=== PATIENT | female | born 1980 | race African-American/Black ===

== ENCOUNTER 2019-05-08 15:56 | Emergency (ER) | payer MEDICARE, SELFPAY ==
[2019-05-08 15:57] VITALS: BP 148/98; PULSE 81; RESP 19; TEMP 36.7; O2SAT 99; BMI 28.6
--- NOTE | 2019-05-08 16:26 | ED.VISSUMM ---
- ER Visit Summary Date of Service: 05/08/19 Chief Complaint: Right upper back pain History of Present Illness: The patient is a 39 F states last evening had pain in the right upper back and constant on the day. Worse with movement. She denies any shortness of breath. No hemoptysis. No chest pain or abdominal pain. She denies any falls or trauma. She has had trigger point injections in her back before in the past. But has no spine surgery history. Or history of degenerative disc. She denies any weakness or numbness. No fever. Physical Examination: Well-appearing female vital signs are stable. She is afebrile. Pulse ox 90% room air no signs of hypoxia. H EENT exam unremarkable. Neck nontender no lymphadenopathy. Full range of motion. Lungs clear to auscultation bilaterally. Heart regular rhythm no murmur rate about 80. Abdomen soft nontender normal bowel sounds no peritoneal signs. Please moves all 4. Neurovascular intact. 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 Dorsi plantarflexion intact. No cauda equina or saddle anesthesia. No weakness or numbness. Back cervical, thoracic and lumbar spine nontender her right trapezius muscle and parathoracic musculature are tender to palpation consistent with muscle spasm. There is no ecchymosis or bruising. No signs of trauma. No redness or Test Results: None Emergency Department Course and Treatment: Patient will be treated for muscle spasm. IM Toradol and p.o. Valium. Taking a cab home. Treatment Plan: Ibuprofen 603 times a day. Hot shower, warm bath size to relax the muscles. Valium 5 mg 3 times daily up to 5 days. Disposition: Discharge Impression: Right upper back pain secondary to muscle spasm This note was generated with [employer] dictation software. It may contain incorrect words, spelling, and punctuation that were not noted in review of the chart prior to signing ED Disposition - Plan for ED Patient: Referrals: NOT,DEFINED [Primary Care Provider] -
--- NOTE | 2019-05-08 16:28 | ED.DEP ---
ED Disposition - Plan for ED Patient: Disposition: Home or Assisted Living Instructions: BACK SPASM, No Trauma Prescriptions: Diazepam [Valium] 10 mg PO Q8H PRN PRN 7 Days #14 tab PRN Reason: Muscle Spasm Prescription Printed Referrals: Sumeet Brown MD [STAFF PHYSICIAN] - 3-5 Days if not improving Additional Instructions: Hot shower and warm bath to relax the muscles. Massage. Valium for the muscle relaxant. Motrin for inflammation and pain. 600 mg 3 times a day.
[2019-05-08] MEDS: Ketorolac 60 MG/2 ML Vial IM (16:33)
[2019-05-08] MEDS: diazePAM 5 MG Tablet 10 MG PO (16:36)
[2019-05-08 17:00] VITALS: RESP 16
--- NOTE | 2019-05-08 17:00 | ED.RN ---
REVIEWED D/C INSTRUCTIONS, FOLLOW UP CARE, PRESCRIPTION, AND S/S THAT WOULD WARRANT A RETURN TO THE ED WITH PT. PT VERBALIZED AN UNDERSTANDING AND DENIES FURTHER QUESTIONS FOR THIS RN. PT SKIN WARM/DRY, RESP EVEN AND UNLABORED, PT A&O X 3, NO DISTRESS NOTED. PT AMBULATED OUT OF ED, GAIT STEADY.
== END 2019-05-08 17:18 | disposition home or self-care (01) ==
PROVIDERS: Emergency Provider Emergency Medicine
DX: M54.6 Pain in thoracic spine (principal); M62.830 Muscle spasm of back; Z72.0 Tobacco use
CPT/HCPCS: 96372; 99283